=== PATIENT | female | born 1955 | race Caucasian/White ===

== ENCOUNTER → 2017-12-06 | Outpatient (CLI) | payer OTHER ==
[~2017-12-06] MED LIST: ADVAIR 250-501 EACH INH; ASPIRIN81 M2 PO; CELEXA 20 MG TA20 MG PO; LOSARTAN-HCTZ1 EACH PO; PROAIR HFA8.5 GM INH; SYNTHROID100 MCG PO; ZOCOR 20 MG TAB20 M1 PO
== END ==
LOC: M.ULTRA 09:00
DX: N63.10 Unspecified lump in the right breast, unspecified quadrant (principal)

== ENCOUNTER → 2019-02-01 | Outpatient (CLI) | payer OTHER ==
[~2019-02-01] MED LIST changes: +AMBIEN 5 MG TABL5 M1 PO; +COMBIVENT RESPIM4 GM INH; +DIOVAN160 MG PO; +MOBIC15 MG PO; +SYMBICORT160 MCG/4. INH
== END ==
LOC: M.RAD 07:22
DX: Z12.31 Encounter for screening mammogram for malignant neoplasm of breast (principal)

== ENCOUNTER 2019-02-02 16:05 | Emergency (ER) | payer OTHER ==
[~2019-02-02] VITALS: Ht 162.6 cm; Wt 65.3 kg
[~2019-02-02 16:05] MED LIST changes: -AMBIEN 5 MG TABL5 M1 PO; -COMBIVENT RESPIM4 GM INH; -DIOVAN160 MG PO; -MOBIC15 MG PO; -SYMBICORT160 MCG/4. INH
[2019-02-02] MEDS ORDERED: AMBIEN 5 MG TABL5 M1 PO (16:14)
[2019-02-02] MEDS ORDERED: DIOVAN160 MG PO (16:14)
[2019-02-02] MEDS ORDERED: MOBIC15 MG PO (16:15)
[2019-02-02] MEDS ORDERED: SYMBICORT160 MCG/4. INH (16:15)
[2019-02-02] MEDS ORDERED: COMBIVENT RESPIM4 GM INH (16:16)
[2019-02-02 16:40] LABS: ABSOLUTE BASOPHILS 0.1 thou/uL (0.0-0.2); ABSOLUTE EOSINOPHILS 0.2 thou/uL (0.0-0.7); ABSOLUTE LYMPHOCYTES 1.4 thou/uL (0.8-5.3); ABSOLUTE MONOCYTES 0.5 thou/uL (0.0-1.2); ABSOLUTE NEUTROPHILS 5.9 thou/uL (1.6-8.1); BASOPHILS 1.1 %; EOSINOPHILS 2.3 %; HEMATOCRIT 37.2 % (37.0-47.0); HEMOGLOBIN 12.8 gm/dL (12.0-15.0); LYMPHOCYTES 17.1 %; MCH 30.7 pg (26.0-34.0); MCHC 34.3 g/dL (28.0-37.0); MCV 89.5 fL (80.0-100.0); MONOCYTES 6.7 %; MPV 7.3 fl. (7.2-11.1); NUCLEATED RBCS 0 /100WBC; PLATELET COUNT* 217 thou/uL (150-400); POLYS 72.8 %; RBC 4.16 mil/uL (4.20-5.00); RDW-CV 13.3 % (10.5-14.5); WBC 8.1 thou/uL (4.0-11.0)
[2019-02-02 16:59] LABS: ALBUMIN 3.8 g/dL (3.4-5.0); ALKALINE PHOSPHATASE 58 U/L (46-116); ANION GAP 4 mmol/L (7-16); BUN 22 mg/dL (7-18); CALCIUM 9.8 mg/dL (8.5-10.1); CHLORIDE 103 mmol/L (98-107); CO2 28 mmol/L (21-32); CREATININE 1.2 mg/dL (0.6-1.3); GLUCOSE 97 mg/dL (70-99); SGOT 26 U/L (15-37); SGPT 26 U/L (30-65); SODIUM 135 mmol/L (136-145); TOTAL BILIRUBIN 0.4 mg/dL (<0.1-1.0); TOTAL PROTEIN 6.9 g/dL (6.4-8.2); TROPONIN-I LEVEL <0.06 ng/mL (<0.06)
[2019-02-02 18:23] VITALS: BP 187/67
--- NOTE | 2019-02-03 15:05 | EKG ---
[place] [address] ELECTROCARDIOGRAM REPORT Name: JUDIT CASTILLO Room: [facility]#: [id number] Admission: 02/02/19 Attend Phys: Discharge: 02/02/19 Date of : 53 Report #: [id number] THIS REPORT FOR: //name// [facility] ED Test Date: 2019-02-02 Test Time: 16:13:08 Pat Name: JUDIT CASTILLO Department: Room: Gender: F [employer] Closer: Gabrielle RODRIGUEZ : 1955 Requested By: Den Vora Order Number: [id number] MD: Rell Pereyra Measurements Intervals [place] Rate: 59 P: 21 MD: 162 QRS: 28 QRSD: 105 T: 51 QT: 441 QTc: 437 Interpretive Statements Sinus rhythm Probable left ventricular hypertrophy No previous ECG available for comparison Electronically Signed On 02-03-2019 15:04:55 CDT by Rell Pereyra [email or web address] <ELECTRONICALLY SIGNED> By: Rell Pereyra MD, [facility] 02/03/19 1504 1613 12 Rell Pereyra MD, FACC /EPI
== END 2019-02-02 18:24 | disposition home or self-care (01) ==
LOC: M.ERS 16:05
PROVIDERS: Nurse Practitioner Family
DX: R51 Headache (principal); I10 Essential (primary) hypertension

== ENCOUNTER 2019-10-03 07:20 | Emergency (ER) | payer OTHER ==
[~2019-10-03] VITALS: Ht 162.6 cm; Wt 65.3 kg
[~2019-10-03 07:20] MED LIST changes: +AMBIEN 5 MG TABL5 M1 PO; +COMBIVENT RESPIM4 GM INH; +DIOVAN160 MG PO; +MOBIC15 MG PO; +SYMBICORT160 MCG/4. INH
[2019-10-03] MEDS ORDERED: [UNRECOGNIZED DRUG - OTHER] (07:37)
[2019-10-03] MEDS ORDERED: NORVASC 2.5 MG2.5 M1 PO (07:38)
[2019-10-03 07:47] LABS: HEMATOCRIT 41.1 % (37.0-47.0); MPV 7.4 fl. (7.2-11.1); NUCLEATED RBCS 0 /100WBC; RBC 4.56 mil/uL (4.20-5.00)
[2019-10-03 07:49] LABS: ABSOLUTE BASOPHILS 0.1 thou/uL (0.0-0.2); ABSOLUTE EOSINOPHILS 0.2 thou/uL (0.0-0.7); ABSOLUTE LYMPHOCYTES 1.1 thou/uL (0.8-5.3); ABSOLUTE MONOCYTES 0.5 thou/uL (0.0-1.2); ABSOLUTE NEUTROPHILS 3.2 thou/uL (1.6-8.1); BASOPHILS 1.2 %; EOSINOPHILS 4.2 %; HEMOGLOBIN 14.1 gm/dL (12.0-15.0); LYMPHOCYTES 22.4 %; MCHC 34.4 g/dL (28.0-37.0); MCV 90.3 fL (80.0-100.0); PLATELET COUNT* 226 thou/uL (150-400); POLYS 63.2 %; RDW-CV 13.2 % (10.5-14.5)
[2019-10-03 07:56] LABS: CALCIUM 9.7 mg/dL (8.5-10.1); CREATININE 0.8 mg/dL (0.6-1.3); POTASSIUM 4.1 mmol/L (3.5-5.1)
[2019-10-03 08:01] LABS: APTT 28.8 Seconds (25.0-31.3); PROTIME 10.6 Seconds (9.20-11.50)
[2019-10-03 08:07] LABS: ALBUMIN 3.9 g/dL (3.4-5.0); TOTAL PROTEIN 7.6 g/dL (6.4-8.2)
[2019-10-03 08:46] LABS: URINE BILIRUBIN NEGATIVE (Negative); URINE BLOOD NEGATIVE (Negative); URINE CLARITY CLEAR; URINE COLOR YELLOW; URINE GLUCOSE-RANDOM NEGATIVE (Negative); URINE KETONES NEGATIVE (Negative); URINE LEUKOCYTES-REFLEX NEGATIVE (Negative); URINE NITRITE-REFLEX NEGATIVE (Negative); URINE PROTEIN NEGATIVE (Negative); URINE UROBILINOGEN 0.2 E.U./dl (0.2-1.0)
[2019-10-03 09:19] VITALS: BP 166/61
--- NOTE | 2019-10-03 11:08 | EKG ---
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
== END 2019-10-03 09:19 | disposition home or self-care (01) ==
LOC: M.ERS 07:20
PROVIDERS: Family Medicine
DX: R42 Dizziness and giddiness (principal); I10 Essential (primary) hypertension; E78.5 Hyperlipidemia, unspecified; E03.9 Hypothyroidism, unspecified; J45.909 Unspecified asthma, uncomplicated

== ENCOUNTER 2020-05-20 13:35 | Emergency (ER) | payer OTHER ==
[~2020-05-20] VITALS: Ht 162.6 cm; Wt 63.5 kg
[~2020-05-20 13:35] MED LIST changes: +NORVASC 2.5 MG2.5 M1 PO; +[UNRECOGNIZED DRUG - OTHER]
[2020-05-20] MEDS ORDERED: BENICAR40 MG PO (14:01)
[2020-05-20] MEDS ORDERED: SYMBICORT160 MCG/4. INH (14:01)
[2020-05-20] MEDS ORDERED: SPIRIVA18 MCG INH (14:01)
[2020-05-20] MEDS ORDERED: CIPRO500 MG PO (14:55)
[2020-05-20] MEDS ORDERED: NORCO 5-325 TA1 EAC1 PO (14:55)
[2020-05-20 15:06] VITALS: BP 141/86
== END 2020-05-20 15:08 | disposition home or self-care (01) ==
LOC: M.ERS 13:35
DX: S91.332A Puncture wound without foreign body, left foot, initial encounter (principal); I10 Essential (primary) hypertension; E78.5 Hyperlipidemia, unspecified; E03.9 Hypothyroidism, unspecified; J45.909 Unspecified asthma, uncomplicated; W22.8XXA Striking against or struck by other objects, initial encounter; Y93.89 Activity, other specified; Y92.89 Other specified places as the place of occurrence of the external cause; Y99.8 Other external cause status